=== PATIENT | female | born 2000 | race Caucasian/White ===

== ENCOUNTER 2019-08-23 06:15 | Inpatient (IN) | payer OTHER, SELFPAY ==
[2019-08-23] VITALS (65 sets, daily range): BP systolic 86–129; BP diastolic 47–96; PULSE 71–103; RESP 18; TEMP 36.6–37.3; O2SAT 96–100; BMI 33.1
[2019-08-23 07:18] LABS: Basophils Percent Auto 0.4 % (0.2-1.2); Eosinophils Absolute Auto 0.1 K/mm3 (0-0.3); Eosinophils Percent Auto 1.9 % (0-4.4); Hematocrit 29.3 % (37.0-47.0); Hemoglobin 9.2 g/dL (12.0-15.0); Immature Granulocyte Absolute 0.03 K/mm3 (0.00-0.031); Immature Granulocyte Percent A 0.4 % (0-0.5); Lymphocytes Absolute Auto 1.24 K/mm3 (0.9-3.2); Lymphocytes Percent Auto 17.1 % (18.3-44.2); Mean Corpuscular HGB Conc 31.4 g/dl (32-36); Mean Corpuscular Hemoglobin 25.1 pg (26-34); Mean Corpuscular Volume 79.8 fl (80-100); Mean Platelet Volume 11.1 fl (7.4-10.4); Monocytes Absolute Auto 0.5 K/mm3 (0.1-0.6); Monocytes Percent Auto 6.3 % (2.6-8.5); Neutrophils Absolute Auto 5.4 K/mm3 (1.3-6.7); Neutrophils Percent Auto 73.9 % (45.5-73.1); Platelet Count Result 266 k/mm3 (150-375); Red Blood Count 3.67 M/mm3 (4.2-5.4); Red Cell Distribution Width 14.7 % (11.5-14.5); White Blood Count 7.3 K/mm3 (4.5-10.0)
--- NOTE | 2019-08-23 07:24 | WPDOBADMIT ---
Obstetrics - Admit Note Admission Note: record reviewed. No pertinent additions to the history and/or any subsequent changes in the physical findings that are not consistent with the expected course of the were found. Additions to the history and/or subsequent changes in the physical findings follow. G1 at 37 weeks for induction of labor due to cholestasis. Cervix 2-3/80/-1. AROM with clear fluid. GBS negative. Continue pitocin
[2019-08-23] MEDS: LACTATED RINGERS 1,000 ML 125 ML IV CONT ×2 (07:26→10:50)
[2019-08-23 07:54] LABS: Amphetamine Screen Urine Negative (Negative); Barbiturate Screen Urine Negative (Negative); Benzodiazepines Screen Urine Negative (Negative); Cannabinoid Screen Urine Negative (Negative); Cocaine Screen Urine Negative (Negative); Methadone Screen Urine Negative (Negative); Opiate Screen Urine Negative (Negative); Phencyclidine Screen Urine Negative (Negative)
--- NOTE | 2019-08-23 07:55 | LDADM ---
This patient, Alyson Simpson, was admitted to Labor/Delivery/Recovery 107 on 08/23/19 at 06:15. Plans for labor, pain management and were discussed with patient. Patient/family oriented to hospital policies and general routines including ID bracelet, bed and alarms, visiting hours, pain management, procedures, bathroom and other care routines, personal items, smoking policy, room service/diet and guest tray routines, security routines, and visiting hours. Patient/Family are encouraged to report perceived risks to care and to ask questions if they do not understand what they are told or what they should do. See OBIX for further documentation.
--- NOTE | 2019-08-23 11:35 | WPDANESEPP ---
Anes - Eval Pre Procedure Procedure: labor epidural Date/Time: 08/23/19 11:35 Surgeon: Beck Preop Diagnosis: labor pain Pre Op Diagnosis: iol Patient Data Age: 18 Gender: F Height: 1.5 m Weight: 74.5 kg Last Vital Signs Temp 36.6 C 08/23/19 09:30 Pulse 94 08/23/19 11:34 BP 118/74 08/23/19 11:34 Pulse Ox 98 08/23/19 11:32 Allergies Allergy/AdvReac Type Severity Reaction Status Date / Time No Known Allergies Allergy Verified 05/24/19 20:48 Home Medications Medication Instructions Recorded Confirmed Type PNV cmb#95-ferrous fumarate-FA 1 tablet PO DAILY 08/20/19 08/20/19 History [] ursodiol 300 mg PO BID 08/20/19 08/20/19 History Laboratory Tests 08/23/19 08/23/19 08/23/19 07:02 07:02 07:02 WBC 7.3 K/mm3 K/mm3 (4.5-10.0) RBC 3.67 M/mm3 L M/mm3 (4.2-5.4) Hgb 9.2 g/dL L D g/dL (12.0-15.0) Hct 29.3 % L % (37.0-47.0) MCV 79.8 fl L fl (80-100) MCH 25.1 pg L pg (26-34) MCHC 31.4 g/dl L g/dl (32-36) RDW 14.7 % H % (11.5-14.5) Plt Count 266 k/mm3 k/mm3 (150-375) MPV 11.1 fl H fl (7.4-10.4) Immature Gran % (Auto) 0.4 % % (0-0.5) Neut % (Auto) 73.9 % H % (45.5-73.1) Lymph % (Auto) 17.1 % L % (18.3-44.2) [place] % (Auto) 6.3 % % (2.6-8.5) Eos % (Auto) 1.9 % % (0-4.4) Baso % (Auto) 0.4 % % (0.2-1.2) Lymph # (Auto) 1.24 K/mm3 K/mm3 (0.9-3.2) [place] # (Auto) 0.5 K/mm3 K/mm3 (0.1-0.6) Eos # (Auto) 0.1 K/mm3 K/mm3 (0-0.3) Baso # (Auto) 0.0 K/mm3 K/mm3 (0.0-0.1) Abs Immat Gran (auto) 0.03 K/mm3 K/mm3 (0.00-0.031) Absolute Neuts (auto) 5.4 K/mm3 K/mm3 (1.3-6.7) Absolute Nucleated RBC 0.0 K/mm3 K/mm3 (0.0-0.012) Nucleated RBC % 0.0 % % (0.0-0.2) Urine Opiates Screen Urine Methadone Screen Ur Barbiturates Screen Ur Phencyclidine Scrn Ur Amphetamine Screen U Benzodiazepines Scrn Urine Cocaine Screen U Cannabinoids Screen RPR Pending Blood Type A Positive Antibody Screen Negative 08/23/19 07:29 WBC RBC Hgb Hct MCV MCH MCHC RDW Plt Count MPV Immature Gran % (Auto) Neut % (Auto) Lymph % (Auto) [place] % (Auto) Eos % (Auto) Baso % (Auto) Lymph # (Auto) [place] # (Auto) Eos # (Auto) Baso # (Auto) Abs Immat Gran (auto) Absolute Neuts (auto) Absolute Nucleated RBC Nucleated RBC % Urine Opiates Screen Negative (Negative) Urine Methadone Screen Negative (Negative) Ur Barbiturates Screen Negative (Negative) Ur Phencyclidine Scrn Negative (Negative) Ur Amphetamine Screen Negative (Negative) U Benzodiazepines Scrn Negative (Negative) Urine Cocaine Screen Negative (Negative) U Cannabinoids Screen Negative (Negative) RPR Blood Type Antibody Screen Patient hx anesthesia problems: none Family hx anesthesia problems: none PMFSH Past Medical History Medical History (Updated 05/24/19 @ 23:57 by Elda Sharif MD) Asthma GERD (gastroesophageal reflux disease) Surgical History Surgical History (Updated 05/24/19 @ 19:44 by James Hooker) History of tonsillectomy Family History Family History (Updated 08/20/19 @ 15:18 by Evan Galeano RN) Other Spina bifida Grandparent Melanoma Social History Social History Smoking status: Never smoker Substance use: current Last use: 3-4 MONTHS AGO Gender identity (if verbalized by the patient): Female Spiritual care concerns: No Exam Day of Procedure 08/23/19 11:35
[2019-08-23] MEDS: CALCIUM CARBONATE (TUMS) 500 MG (200 MG ELEMENTAL) PO (15:58)
[2019-08-23] MEDS: ONDANSETRON INJ 4 MG/2 ML VIAL IV PUSH (16:22)
--- NOTE | 2019-08-23 17:28 | PM.OBPRVD ---
OB - Delivery Note Procedure Delivery date: 08/23/19 Procedure: events: Labor Induction Intrapartal events: None Induction method: AROM and per pitocin protocol Delivery monitor: external FHT Route of delivery: Episiotomy description: Midline (second degree) Delivery repair: vicryl (2-0) Specimen: Yes Estimated blood loss (mL): 275 Anesthesia type: Epidural Disposition: floor Baby Date of : 08/23/19 Time of : 17:09 Weeks of gestation at delivery: 37 Infant gender: Female Weight (pounds): 7 Weight (ounces): 11 presentation: vertex position: Right Occiput Posterior Placenta delivery description: Manual Removal cord vessel description: 3 Vessels and Nuchal Cord score one minute: 8 score five minutes: 9
[2019-08-23] MEDS: WITCH HAZEL 40 PADS 1 PAD TOPICAL (19:18)
[2019-08-23] MEDS: BENZOCAINE 20% AER SPR (*SP) 56 GM CAN 1 SPRAY TOPICAL (19:19)
--- NOTE | 2019-08-23 19:51 | OBPPTRN ---
Patient transferred to post room #283 via wheelchair with in bassinet. Support person present. Oriented to unit, room, information board, rooming in, admission packet and security measures. Patient verbalizes understanding.
[2019-08-23] MEDS: IBUPROFEN 600 MG TABLET PO (20:43)
[2019-08-23] MEDS: SIMETHICONE 80 MG TAB.CHEW PO (23:50)
[2019-08-24] MEDS: IBUPROFEN 600 MG TABLET PO ×3 (03:45→17:59)
[2019-08-24 05:17] LABS: Hematocrit 26.2 % (37.0-47.0); Hemoglobin 8.4 g/dL (12.0-15.0)
--- NOTE | 2019-08-24 07:34 | WPDANLDPN2 ---
Anes-Prog Note L&D Date/Time: 08/24/19 07:34 Comfortable throughout: labor and delivery Neuraxial method: epidural Epidural/Spinal procedure site: clean & non-tender Neuro status: Neuro function grossly intact. Cardiovascular status: normal Respiratory status: normal Airway patency: baseline Mental status: baseline Post-Op hydration status: normal Vital Signs: Last Vital Signs Temp 36.6 C 08/23/19 22:40 Pulse 80 08/23/19 22:40 Resp 18 08/23/19 22:40 BP 106/66 08/23/19 22:40 Pulse Ox 100 08/23/19 22:40 I/O: Intake & Output 08/23/19 08/23/19 08/24/19 15:59 23:59 07:59 Intake Total 1000 Output Total 356 Balance 1000 -356 Post-procedural complaints: none Patient feedback: Patient satisfied with anesthetic care.
--- NOTE | 2019-08-24 07:48 | P.DS_ITS ---
DS: Diagnosis Discharge Diagnosis (1) Cholestasis during in third trimester: Code(s): O26.613 - Liver and biliary tract disorders in , third trimester; K83.1 - Obstruction of bile duct Status: Acute OB - DS: Summary OB Procedures : None OB Procedures Intrapartum: Spontaneous Vag Delivery OB Procedures: : None Peripartum Data Infant Delivery Method: Natural Vaginal Episiotomy description: Midline (2nd degree) complications: none Status at Discharge Functional status at discharge: independent ambulation Overall status at discharge: patient is progressing back to baseline Time Spent with Patient Time attestation: Total time spent providing and/or coordinating discharge services: Time spent: Less than 30 minutes DS: Data Data Completed and Pending Pending studies at discharge: Pending at discharge 08/23/19 17:15 Surgical [PTH] Routine Labs on day of discharge: Labs from last 24 hours 08/24/19 08/23/19 08/23/19 05:10 07:29 07:02 Hgb 8.4 L Hct 26.2 L Urine Opiates Screen Negative Urine Methadone Screen Negative Ur Barbiturates Screen Negative Ur Phencyclidine Scrn Negative Ur Amphetamine Screen Negative U Benzodiazepines Scrn Negative Urine Cocaine Screen Negative U Cannabinoids Screen Negative Blood Type A Positive Antibody Screen Negative Discharge Plan Discharge Attending physician on discharge: Pattie Solares Anticipated Discharge Date/Time: 08/25/19 11:00 Patient Disposition: Home, Self-Care Activity: may shower and pelvic rest Diet: regular Patient Instructions: Antibiotic Form Stand Alone Forms: General Discharge Information Follow-up/Referrals: Pattie Solares MD [Physician] - 4 Weeks Discharge Medications: New ibuprofen 600 mg Tablet 600 mg PO Q6H PRN (Reason: Cramping) Qty: 60 RF: 0 Continued PNV cmb#95-ferrous fumarate-FA [] 28 mg iron- 800 mcg Tablet 1 tablet PO DAILY RF: 0 Discontinued ursodiol 300 mg Capsule 300 mg PO BID RF: 0 Date of admission: 08/23/19 06:15 Primary Care Provider: PHYSICIAN,[employer]ENER [employer] Admitting Provider: Pattie Solares Attending physician on admission: Pattie Solares
--- NOTE | 2019-08-24 07:48 | PM.OBPNVD ---
OB - PN: Subj Subjective Date/time seen: 08/24/19 07:48 Patient comments: no complaints, pain well controlled and other (Lochia similar to menses) [place] baby status: doing well OB - PN: Obj Data Labs CBC & Chem 7: 08/24/19 05:10 Labs: Laboratory Results - last 24 hr 08/23/19 08/23/19 08/24/19 07:02 07:29 05:10 Hgb 8.4 L Hct 26.2 L Urine Opiates Screen Negative Urine Methadone Screen Negative Ur Barbiturates Screen Negative Ur Phencyclidine Scrn Negative Ur Amphetamine Screen Negative U Benzodiazepines Scrn Negative Urine Cocaine Screen Negative U Cannabinoids Screen Negative Blood Type A Positive Antibody Screen Negative OB - PN A/P Plan day: 1 (s/p vaginal delivery, doing well) Plan: routine care Time Spent With Patient Time: Total time spent is greater than 50% in coordination of care (as documented) at patient's floor/unit and/or counseling patient: Exam Const: General: no acute distress GI: Inspection: other (Fundus firm and nontender at umbilicus) GI Palp: Yes Soft to palpation and No Tenderness to palpation present (GI) Extrem: General: no edema
[2019-08-24 07:55] VITALS: BP 110/55; PULSE 85; RESP 18; TEMP 37.6; O2SAT 98
[2019-08-24] MEDS: DOCUSATE SODIUM 100 MG CAPSULE PO ×2 (08:44→16:54)
[2019-08-24] MEDS: MULTIVIT/MIN/PREN/FOL AC/IRON TABLET 1 TAB PO (08:44)
[2019-08-24] MEDS: POLYSACCHARIDE IRON COMPLEX 150 MG CAPSULE PO ×2 (08:44→16:54)
[2019-08-24] MEDS: TETANUS,DIPHTHERIA,AC PERTUSSIS ADULT 0.5 ML (ADACEL) IM (08:45)
[2019-08-24 09:25] LABS: Rapid Plasma Reagin Non-Reactive (NonReactive)
--- NOTE | 2019-08-24 14:30 | PC.NURSE ---
Mother called out for assist with feeding. Upon entering mother is latching in cradle with head to the right and extended. Mother reports slight tenderness with feeding. When releases latch nipple is curled upward. Reviewed positioning/alignment in cross cradle, holding breast in U hold and guided asymmetrical latch on. was able to latch correctly. nursed eagerly, with steady draws and frequent swallowing noted. Reviewed signs of a correct latch, effective nursing and suck swallow ratio. Infant was able to maintain latch without discomfort to mother. Nipple care reviewed. Suggested mother hold breast during entire feeding to assist maintaining deep latch for increased intake and her comfort. Instructed mother to call out for RN assistance if she is unable to latch infant for feeding or she has discomfort with nursing. Instructed feeding should be initiated three hours from start of last feeding or if feeding cues are noted before. Mother voiced understanding of information shared. Reviewed feeding cues, frequencies, duration of feedings, feeding elimination flow sheet, and signs of adequate intake. Demonstrated stimulation techniques to wake infant for feeding. Assisted with to breast.
[2019-08-24 20:40] VITALS: BP 105/55; PULSE 73; RESP 18; TEMP 36.9; O2SAT 97
[2019-08-25] MEDS: IBUPROFEN 600 MG TABLET PO ×2 (03:51→11:06)
--- NOTE | 2019-08-25 07:47 | PM.OBPNVD ---
OB - PN: Subj Subjective Date/time seen: 08/25/19 07:47 OB - PN: Obj Data Labs CBC & Chem 7: 08/24/19 05:10 Labs: Laboratory Results - last 24 hr 08/23/19 07:02 RPR Non-reactive OB - PN A/P Plan day: 2 Plan: routine care, discharge home and other Comments: Follow up in 4 weeks Time Spent With Patient Time: Total time spent is greater than 50% in coordination of care (as documented) at patient's floor/unit and/or counseling patient: Time with patient: less than 15 minutes Review of Systems Review of Systems: All systems reviewed & are unremarkable except as noted in HPI and below Exam Narrative: Exam Narrative: Fundus firm and vaginal flow controlled. Lower ext: no pain, redness or warmth. Negative homans. Const: General: comfortable Resp: Effort & Inspection: normal respiratory effort Cardio: Rate: regular rate GI: Auscultation: normal bowel sounds Psych: Appearance: grossly normal Affect: normal affect Attitude: cooperative Judgement: Good judgement present (Psych)
[2019-08-25 08:20] VITALS: BP 106/60; PULSE 77; RESP 18; TEMP 37.5; O2SAT 99
[2019-08-25] MEDS: MULTIVIT/MIN/PREN/FOL AC/IRON TABLET 1 TAB PO (08:53)
[2019-08-25] MEDS: POLYSACCHARIDE IRON COMPLEX 150 MG CAPSULE PO (08:53)
[2019-08-25] MEDS: DOCUSATE SODIUM 100 MG CAPSULE PO (08:53)
--- NOTE | 2019-08-25 09:40 | PC.NURSE ---
Mother able to independently latch with appropriate positioning/alignment. She denies any nipple discomfort, is feeding as required and waking infant to feed if needed. Infant has had 8 effective feedings in the past 24 hours, and is currently meeting outcomes for weight, output, jaundice and feeding frequencies. Mother states she feels confident to continue effective at home. Reviewed transition to breast milk, signs of adequate intake, and engorgement/relief. Instructed to call ICP if intake/output less than required. Reviewed regular medications mother is taking. Information provided per E[place]. Reviewed community resources on the [facility] website and in the Mom/Baby guide. Information on outpatient services provided. Mother has no further questions at this time. Assisted/demonstrated to mother her home pump
--- NOTE | 2019-08-25 11:44 | PCCCNOTE ---
Care Coordination met with pt. this morning to discuss discharge planning. Pt.'s discharge plan is to return home with her mother. Pt. states that her mother lives in [facility]. Pt. states that she and the FOB live with her mother and they will continue to live with her once discharged from the hospital. Pt.'s mother is supportive and will assist pt. with caring for the baby. Pt. states that FOB is also very supportive. This is the first baby for both the pt. and FOB. Pt. states that she has everything at home that she will need to care for the baby. She has a care seat in the room and states that they went to the fire station to have the car seat properly installed into the car. Pt. is working on signing up for WIC for the baby but was given resources that include WIC if needed. Pt. tested positive for THC during her , but tested negative at time of delivery. The baby has not been tested. Pt. states she used Marijuana to help with her nausea and now that she has delivered the baby, she will not continue to use Marijuana. Pt. states that she has no discharge needs or concerns about discharging home at this time. No further need for Care Coordination services at this time.
== END 2019-08-25 17:37 | disposition home or self-care (01) | DRG 560 ==
LOC: ANHLDR 10:18 → ANHOB2 19:57
PROVIDERS: Admitting Provider Obstetrics & Gynecology; Visit Provider Obstetrics & Gynecology
DX: O26.62 Liver and biliary tract disorders in childbirth (principal); K83.1 Obstruction of bile duct; Z3A.37 37 weeks gestation of pregnancy; Z37.0 Single live birth; O69.81X0 Labor and delivery complicated by cord around neck, without compression, not applicable or unspecified; O70.1 Second degree perineal laceration during delivery; O71.82 Other specified trauma to perineum and vulva; Z23 Encounter for immunization
CPT/HCPCS: 36415; 80307; 85014; 85018; 85025; 86592; 86850; 86900; 86901; 88307; 90715; A9270; J2405; J2590; J2795; J3010; J7120

== ENCOUNTER 2021-04-27 19:55 | Emergency (ER) | payer OTHER, SELFPAY ==
--- NOTE | ~2021-04-27 | XR_ITS ---
EXAMINATION: XR chest 2V DATE: 04/27/2021 20:33 INDICATION: Chest tightness. Shortness of breath. TECHNIQUE: Frontal and lateral views of the chest were obtained. COMPARISON: Chest 2 views 05/24/2019 FINDINGS: The chest demonstrates clear lungs without pneumonia, pleural effusion, or pneumothorax. Th e heart size is normal. IMPRESSION: 1. No acute cardiopulmonary disease. Reviewed, dictated and finalized at location A.
[2021-04-27 20:10] VITALS: BP 127/84; PULSE 95; RESP 18; TEMP 36.7; O2SAT 100
--- NOTE | 2021-04-27 20:16 | ECG_ITS ---
Measurements Intervals [place] Rate: 82 P: 40 SD: 148 QRS: 61 QRSD: 90 T: 38 QT: 361 QTc: 423 Interpretive Statements SINUS RHYTHM WITH SINUS ARRHYTHMIA BASELINE ARTIFACT-I, II, III, AVR, AVL, AVF NORMAL ECG Electronically Signed On 04-28-2021 6:20:19 CDT by Wilfred Engel D.O.
[2021-04-27 21:49] LABS: Basophils Absolute Auto 0.1 K/mm3 (0.0-0.1); Basophils Percent Auto 0.7 % (0.2-1.2); Eosinophils Absolute Auto 0.2 K/mm3 (0-0.3); Eosinophils Percent Auto 2.5 % (0-4.4); Hematocrit 40.7 % (37.0-47.0); Hemoglobin 13.3 g/dL (12.0-15.0); Immature Granulocyte Absolute 0.02 K/mm3 (0.00-0.031); Immature Granulocyte Percent A 0.3 % (0-0.5); Lymphocytes Absolute Auto 1.25 K/mm3 (0.9-3.2); Lymphocytes Percent Auto 16.5 % (18.3-44.2); Mean Corpuscular HGB Conc 32.7 g/dl (32-36); Mean Corpuscular Hemoglobin 28.1 pg (26-34); Mean Corpuscular Volume 85.9 fl (80-100); Mean Platelet Volume 10.6 fl (7.4-10.4); Monocytes Absolute Auto 0.7 K/mm3 (0.1-0.6); Monocytes Percent Auto 9.1 % (2.6-8.5); Neutrophils Absolute Auto 5.4 K/mm3 (1.3-6.7); Neutrophils Percent Auto 70.9 % (45.5-73.1); Platelet Count Result 313 k/mm3 (150-375); Red Blood Count 4.74 M/mm3 (4.2-5.4); Red Cell Distribution Width 12.8 % (11.5-14.5); White Blood Count 7.6 K/mm3 (4.5-10.0)
[2021-04-27 22:04] LABS: Anion Gap 12 mmol/L (8-16); Blood Urea Nitrogen 9 mg/dL (7-17); Calcium 9.1 mg/dL (8.4-10.2); Carbon Dioxide 24 mmol/L (22-30); Chloride 106 mmol/L (98-107); Estimated Glomerular Filt Rate > 60; Glucose 103 mg/dL (65-110); Potassium 3.6 mmol/L (3.4-5.0); Sodium 142 mmol/L (137-145)
[2021-04-27 22:06] LABS: INR 0.9; Prothrombin Time 12.1 Seconds (11.1-14.7)
[2021-04-27 22:07] LABS: Partial Thromboplastin Time 29.3 SECONDS (22.3-36.8)
[2021-04-27 22:09] LABS: D Dimer 0.33 ug/mL (<0.48)
[2021-04-27 22:16] LABS: Troponin I < 0.012 ng/mL (0.000-0.034)
--- NOTE | 2021-04-27 22:53 | PC.NURSE ---
Stated to this RN that her ride needed to go to work. Speech clear. a/o x 4. ambulatory out of dept. c steady, even, unassisted gait.
== END 2021-04-27 22:53 | disposition left against medical advice (07) ==
PROVIDERS: Emergency Provider Emergency Medicine
DX: R06.02 Shortness of breath (principal)
CPT/HCPCS: 36415; 71046; 80048; 84484; 85025; 85380; 85610; 85730; 93005; 99199

== ENCOUNTER 2021-04-29 10:35 | Emergency (ER) | payer OTHER, SELFPAY ==
[2021-04-29 10:49] VITALS: BP 119/66; PULSE 95; RESP 16; TEMP 36.3; O2SAT 99
--- NOTE | 2021-04-29 10:56 | ED.URI ---
HPI - URI/Sore Throat General Chief Complaint: Upper Respiratory Infection Stated Complaint: cough/difficulty breathing Time Seen by Provider: 04/29/21 10:56 Source: patient, RN notes reviewed and old records reviewed (ER record) Mode of arrival: ambulatory Limitations: no limitations History of Present Illness HPI Narrative: 20-year-old female presents to the [facility] with cough and short of breath. States is going on for weeks. Had gone to the ER couple of days ago but never seen a provider MD elicited complaint: cough Related Data Home Medications Medication Instructions Recorded Confirmed PNV cmb#95-ferrous fumarate-FA 1 tablet PO DAILY 08/20/19 04/29/21 [] Allergies Allergy/AdvReac Type Severity Reaction Status Date / Time No Known Allergies Allergy Verified 04/29/21 10:47 Review of Systems Review of Systems: All systems reviewed & are unremarkable except as noted in HPI and below Constitutional: Constitutional: Reports no additional constitutional complaints Eyes: Eyes: Reports no additional eye complaints ENT: Reports system reviewed and no additional complaints, except as documented Cardiovascular: Cardiovascular: Reports no additional cardiovascular complaints Respiratory: Respiratory: Reports as per HPI, Reports cough, Reports dyspnea and Reports wheezing Gastrointestinal: Gastrointestinal: Reports no additional gastrointestinal complaints Musculoskeletal: Musculoskeletal: Reports no additional musculoskeletal complaints Integumentary/Breasts: Skin/Breast: Reports system reviewed and no additional complaints, except as docu Neurologic: Reports system reviewed and no additional complaints, except as documented Psychiatric: Psychiatric: Reports no additional psychiatric complaints Allergic/Immunologic: Allergic/Immunologic: Reports no additional allergic/immunologic complaints PMFSH Past Medical History Medical History Asthma GERD (gastroesophageal reflux disease) Surgical History Surgical History History of tonsillectomy Family History Family History Other Spina bifida Grandparent Melanoma Social History Social History Smoking status: Never smoker Substance use: current Last use: 3-4 MONTHS AGO Gender identity (if verbalized by the patient): Female Spiritual care concerns: No Comments At the time of my signature, I reviewed and agree with the nursing past medical, surgical, social, and family history. There is no relevant family history pertinent to the patient complaint. Exam Const: General: no acute distress, alert and ill appearing acutely Nutritional Appearance: well nourished Orientation/consciousness: patient oriented x3 Limitations: no limitations HENMT: Head: normal to inspection Ears: external ears normal, TM's normal bilaterally and EAC's normal Eyes: Pupils: Equal, round and reactive pupils present Neck: Neck: normal visual inspection, no lymphadenopathy and no meningeal signs Chest: Chest palpation & inspection: normal inspection of the chest Resp: Effort & Inspection: normal respiratory effort and no use of accessory muscles Auscultation: wheezes upper bilaterally and diminished lung sounds bilateral in the lower lung dobson Cardio: Rate: regular rate Rhythm: regular rhythm GI: GI Palp: Yes Soft to palpation and No Tenderness to palpation present (GI) : General: Yes no CVA tenderness Back/Spine/Pelvis: Back: no CVA tenderness Skin: General skin exam: normal color Rashes: no rashes Wounds: no wounds Neuro: General: patient oriented x3, moves all extremities, no meningeal signs and no focal motor deficits Speech: normal speech Gait exam (Neuro): Normal gait present Extrem: General: normal to inspection Psych: Appearance: gr
[2021-04-29 11:08] VITALS: PULSE 110; RESP 18; O2SAT 99
[2021-04-29] MEDS: ALBUTEROL SULFATE NEB 2.5 MG/3 ML INH INHALATION (11:10)
[2021-04-29] MEDS: IPRATROPIUM BR 0.02% INH SOLN 0.5 MG/2.5 ML VIAL INHALATION (11:10)
[2021-04-29 11:35] VITALS: PULSE 103; RESP 18; O2SAT 99
== END 2021-04-29 11:47 | disposition home or self-care (01) ==
PROVIDERS: Emergency Provider Nurse Practitioner
DX: J40 Bronchitis, not specified as acute or chronic (principal); J45.909 Unspecified asthma, uncomplicated; K21.9 Gastro-esophageal reflux disease without esophagitis
CPT/HCPCS: 94640; 99213; G0463

== ENCOUNTER 2022-05-26 16:17 | Emergency (ER) | payer OTHER, SELFPAY ==
--- NOTE | ~2022-05-26 | US_ITS ---
US OB <=14 wk fetus w TV DATE: 05/26/2022 19:00 INDICATION: Vaginal bleeding; 6-7 week gestation. History of miscarriage. TECHNIQUE: Real-time imaging via transabdominal and transvaginal approaches. Doppler analysis. COMPARISON: 01/28/2019 obstetrical ultrasound FINDINGS: The uterus is retroverted, measuring approximately 9.9 cm height, up to 4.8 cm AP dimension . An intrauterine gestational sac is identified with surrounding hyperechogenicity consistent with norm al decidual reaction. pole and yolk sac are identified. heart rate of 127 bpm. Mignon-rump length averages 0.55 cm consistent with 6 weeks 2 days +/- 4 days estimated gestational ag e. CAMILA: 01/17/2023. Gestational sac of 1.7 cm is consistent with 6 weeks 5 days estimated gestational age. There is a very shallow fluid collection adjacent to the gestational sac consistent with small subcho rionic hematoma. 3.2 cm right ovarian cyst. The left ovary measures 2.42 x 1.5 cm. IMPRESSION: Estimated gestational age of 6 weeks 2 days +/- 4 days; CAMILA: 01/17/2023 Very small subchorionic hematoma 3.2 cm right ovarian cyst Retroverted uterus Reviewed, dictated and finalized at Location [facility]. Reviewed, dictated and finalized at location A. TS PHYSIOLOGIST IMPRESSION: Estimated gestational age of 6 weeks 2 days +/- 4 days; CAMILA: 01/18/20 23 Very small subchorionic hematoma 3.2 cm right ovarian cyst Retroverted uterus
[2022-05-26 16:24] VITALS: BP 115/78; PULSE 80; RESP 17; TEMP 36.7; O2SAT 100
[2022-05-26 18:46] LABS: Basophils Absolute Auto 0.1 K/mm3 (0.0-0.1); Basophils Percent Auto 0.5 % (0.2-1.2); Eosinophils Absolute Auto 0.1 K/mm3 (0-0.3); Eosinophils Percent Auto 0.9 % (0-4.4); Hematocrit 40.6 % (37.0-47.0); Hemoglobin 13.9 g/dL (12.0-15.0); Immature Granulocyte Absolute 0.03 K/mm3 (0.00-0.031); Immature Granulocyte Percent A 0.3 % (0-0.5); Lymphocytes Absolute Auto 1.68 K/mm3 (0.9-3.2); Lymphocytes Percent Auto 17.1 % (18.3-44.2); Mean Corpuscular HGB Conc 34.2 g/dl (32-36); Mean Corpuscular Volume 84.8 fl (80-100); Monocytes Absolute Auto 0.5 K/mm3 (0.1-0.6); Monocytes Percent Auto 5.3 % (2.6-8.5); Neutrophils Absolute Auto 7.4 K/mm3 (1.3-6.7); Neutrophils Percent Auto 75.9 % (45.5-73.1); Platelet Count Result 336 k/mm3 (150-375); Red Blood Count 4.79 M/mm3 (4.2-5.4); Red Cell Distribution Width 11.6 % (11.5-14.5); White Blood Count 9.8 K/mm3 (4.5-10.0)
--- NOTE | 2022-05-26 18:49 | ED.PREGNANCY ---
HPI - General Chief complaint: Vaginal Bleeding Stated complaint: vaginal bleeding, Time Seen by Provider: 05/26/22 18:22 Source: patient Mode of arrival: ambulatory Limitations: no limitations History of Present Illness HPI Narrative: Patient is a 21-year-old female, G3, P1, A1 (miscarriage January 2022), who presents the ED with report of vaginal spotting. Patient reports she is approximately 6 to 7 weeks gestation. Last normal menstrual period April 07, 2022. Over the last few days, she has had intermittent vaginal bleeding, noticed mostly when she is wiping her self after using the restroom. She is scheduled to see Dr. Armstrong with [facility] on . She denies any significant abdominal pain. She has had nausea and vomiting in the mornings. Denies hematuria, dysuria, fever. Related Data Home Medications Medication Instructions Recorded Confirmed vit no.95-ferrous 1 tablet PO DAILY 08/20/19 04/29/21 fumarate 28 mg-folic acid 800 mcg tablet () Allergies Allergy/AdvReac Type Severity Reaction Status Date / Time No Known Allergies Allergy Verified 05/26/22 18:36 Review of Systems Review of Systems: CONSTITUTIONAL: Denies fever, chills, or sweats. CARDIOVASCULAR: Denies chest pain. RESPIRATORY: Denies dyspnea. GASTROINTESTINAL: Reports nausea, vomiting. Denies abdominal pain or diarrhea. GENITOURINARY: Reports vaginal bleeding. Denies dysuria or hematuria. All systems reviewed & are unremarkable except as noted in HPI and below PMFSH Past Medical History Medical History (Updated 05/26/22 @ 20:24 by Maureen Allen PA-C) Asthma GERD (gastroesophageal reflux disease) History of miscarriage Surgical History Surgical History History of tonsillectomy Family History Family History Other Spina bifida Grandparent Melanoma Social History Social History Smoking status: Never smoker Substance use: current Last use: 3-4 MONTHS AGO Gender identity (if verbalized by the patient): Female Spiritual care concerns: No Exam Narrative: GENERAL: Well appearing, well-nourished, non-toxic, in no acute distress. HEAD: Normocephalic, atraumatic. NECK: Supple. No adenopathy, no masses. RESPIRATORY: Airway patent, respirations nonlabored. Clear to auscultation bilaterally, no rales, rhonchi, wheezing. CARDIOVASCULAR: Regular rate and rhythm without murmurs, rubs, or gallops. Peripheral pulses 2+ and equal bilaterally. ABDOMINAL: Soft, no significant tenderness to palpation, nondistended, no hepatosplenomegaly. Normoactive BS. PELVIC: Normal external genitalia. Mild amount of physiologic discharge. No active bleeding from cervix. Cervix closed. No significant CMT. MUSCULOSKELETAL: Moves all extremities. Strength/ROM intact without gross deformities. SKIN: Warm, dry, normal color. No rashes. NEURO: A&O X3. Speech clear. Cranial nerves II-XII grossly intact. Steady gait. No ataxic movements. PSYCHIATRIC: Appropriate mood and affect. Normal interaction. Course Consultations Consultation #1: Discussed case with Dr. Armstrong, FRONT OFFICE SECRETARY, made aware of case findings. Will follow patient at scheduled appointment in office this week. Date: 05/26/22 Vital Signs Vital signs: Vital Signs Temperature 98.1 F 05/26/22 16:24 Pulse Rate 80 05/26/22 16:24 Respiratory Rate 17 05/26/22 16:24 Blood Pressure 115/78 05/26/22 16:24 Pulse Oximetry 100 05/26/22 16:24 Oxygen Delivery Room Air 05/26/22 16:24 Temperature 98.1 F 05/26/22 16:24 Pulse Rate 80 05/26/22 16:24 Respiratory Rate 17 05/26/22 16:24 Blood Pressure 115/78 05/26/22 16:24 Pulse Oximetry 100 05/26/22 16:24 Oxygen Delivery Room Air 05/26/22 16:24 MDM - OB/Uterine Contractions MDM N
[2022-05-26 19:09] LABS: Appearance Urine Slightly Cloudy (Clear); Bilirubin Urine 1+ (Negative); Blood Urine Negative (Negative); Color Urine Yellow (Yellow); Glucose Urine UA Negative (Negative); Ketones Urine 4+ mg/dL (Negative); Leukocyte Esterase Ur 2+ LEU/UL (Negative); Nitrate Urine Negative (Negative); Protein Urine Negative (Negative); Specific Grav Ur 1.025 (1.001-1.035); Urobilinogen Urine 0.2 mg/dL (<2.0)
[2022-05-26 19:13] LABS: Bacteria Urine Trace /hpf; Mucus Urine Few /lpf; RBC Urine 0-2 /hpf (0-2); Squamous Epithelial Cell Urine Many /hpf (Few)
[2022-05-26 19:14] LABS: Add Urine Microscopic? YES
== END 2022-05-26 21:30 | disposition home or self-care (01) ==
PROVIDERS: Physician Assistant; Emergency Provider Emergency Medicine
DX: O46.8X1 Other antepartum hemorrhage, first trimester (principal); O26.891 Other specified pregnancy related conditions, first trimester; R82.71 Bacteriuria; O99.511 Diseases of the respiratory system complicating pregnancy, first trimester; J45.909 Unspecified asthma, uncomplicated; O99.611 Diseases of the digestive system complicating pregnancy, first trimester; K21.9 Gastro-esophageal reflux disease without esophagitis; Z3A.01 Less than 8 weeks gestation of pregnancy
CPT/HCPCS: 36415; 76801; 76817; 81001; 84702; 85025; 85461; 86850; 86900; 86901; 87086; 87088; 99284

== ENCOUNTER 2022-08-13 08:19 | Emergency (ER) | payer OTHER, SELFPAY ==
--- NOTE | ~2022-08-13 | US_ITS ---
EXAMINATION: US OB limited DATE: 08/13/2022 09:28 INDICATION: Low abdominal cramping and pain. Estimated gestational age of 17 weeks and 4 days. TECHNIQUE: Real-time ultrasound of the pelvis was performed. COMPARISON: Ultrasound 05/26/2022 FINDINGS: There is a single fetus in transverse lie. The placenta is posterior and abuts the cervix. The cervi maciej length is 3.8 cm on transabdominal images, which is normal. heart rate is 130 beats per min [place] (bpm). The amniotic fluid volume is subjectively normal. IMPRESSION: 1. Single living fetus in transverse lie. 2. Marginal placenta previa. Follow-up ultrasound is recommended in the third trimester. Reviewed, dictated and finalized at location A. [employer]GER IMPRESSION: 1. Single living fetus in transverse lie. 2. Marginal placenta previa. Follow-up ultrasound is recommended in the third t rimester.
[2022-08-13 08:31] VITALS: BP 127/67; PULSE 95; RESP 20; TEMP 36.6; O2SAT 99
--- NOTE | 2022-08-13 09:04 | ED.ABDPAIN ---
HPI - Abdominal Pain General Chief Complaint: Abdominal Pain Stated Complaint: abd pain, 18 wks preg Time Seen by Provider: 08/13/22 08:54 History of Present Illness HPI narrative: Patient is a 21-year-old A1 female who is currently about 18 weeks here for evaluation of lower abdominal pain over the past 2 days. Patient states the pain is intermittent in nature, worse with certain positions. She contacted her [employer]AR SCIENTIST who attributed it to round ligament pain, she was told to use a belly band and rest. Patient has not attempted these measures; presented to ED make sure that her baby was okay. Denies any vaginal bleeding, dysuria, urgency, constipation, diarrhea. No contraction-like pain, sudden gush of fluids, decreased movement. Related Data Home Medications Medication Instructions Recorded Confirmed vit no.95-ferrous 1 tablet PO DAILY 08/20/19 04/29/21 fumarate 28 mg-folic acid 800 mcg tablet () Allergies Allergy/AdvReac Type Severity Reaction Status Date / Time No Known Allergies Allergy Verified 05/26/22 18:36 Review of Systems Review of Systems: Gen.: Denies fevers or chills Eyes: Denies eye pain or visual change ENT: Denies congestion Respiratory: Denies shortness of breath or cough CV: Denies chest pain or palpitations GI: Reports lower abdominal pain. Denies nausea, emesis or diarrhea denies burning, urgency, frequency or hematuria Musculoskeletal: Denies back pain or muscle pain Neuro: Denies numbness, tingling, weakness or focal weakness Skin: Denies rash Except as documented, all other systems reviewed and negative [facility] Past Medical History Medical History Asthma GERD (gastroesophageal reflux disease) History of miscarriage Surgical History Surgical History History of tonsillectomy Family History Family History Other Spina bifida Grandparent Melanoma Social History Social History Smoking status: Never smoker Substance use: current Last use: 3-4 MONTHS AGO Gender identity (if verbalized by the patient): Female Spiritual care concerns: No Exam Narrative: APPEARANCE: Well appearing, no pain in distress, well-nourished. Head: Normocephalic and atraumatic. EYES: PERRLA/EOMI, conjunctivae clear NOSE: No nasal drainage EARS: External ear normal in appearance THROAT: Oropharynx is clear. Mucous membranes are moist. NECK: Supple. No adenopathy, no masses. RESPIRATORY: Airway patent, respirations nonlabored. Clear to auscultation bilaterally, no rales, rhonchi, wheezing. CARDIOVASCULAR: Regular rate and rhythm without murmurs, rubs, or gallops. ABDOMINAL: heart tones detected at bedside at 140 rate. Normoactive bowel sounds. Soft, nontender, nondistended. No rebound tenderness or guarding. MUSCULOSKELETAL: Extremities are warm and well-perfused. Moves all extremities well. No edema. NEURO: Normal speech. No focal neurologic deficits. SKIN: Skin is warm and dry. No rashes. PSYCHIATRIC: Normal affect/mood. Course Vital Signs Vital signs: Vital Signs Temperature 97.8 F 08/13/22 08:31 Pulse Rate 95 08/13/22 08:31 Respiratory Rate 20 08/13/22 08:31 Blood Pressure 127/67 08/13/22 08:31 Pulse Oximetry 99 08/13/22 08:31 Oxygen Delivery Room Air 08/13/22 08:31 Temperature 97.8 F 08/13/22 09:38 Pulse Rate 80 08/13/22 11:59 Respiratory Rate 18 08/13/22 11:59 Blood Pressure 108/68 08/13/22 11:59 Pulse Oximetry 99 08/13/22 11:59 Oxygen Delivery Room Air 08/13/22 08:31 MDM - Abdominal Pain MDM Narrative Medical decision making narrative: 21-year-old G3, female who is currently 18 weeks here for evaluation of lower abdominal pain over the
[2022-08-13] MEDS: ACETAMINOPHEN 325 MG TABLET 650 MG PO (09:08)
[2022-08-13 09:38] VITALS: TEMP 36.6
[2022-08-13 10:05] LABS: Basophils Percent Auto 0.3 % (0.2-1.2); Eosinophils Percent Auto 0.6 % (0-4.4); Hematocrit 32.7 % (37.0-47.0); Hemoglobin 11.4 g/dL (12.0-15.0); Immature Granulocyte Absolute 0.03 K/mm3 (0.00-0.031); Immature Granulocyte Percent A 0.4 % (0-0.5); Lymphocytes Absolute Auto 1.02 K/mm3 (0.9-3.2); Lymphocytes Percent Auto 15.1 % (18.3-44.2); Mean Corpuscular HGB Conc 34.9 g/dl (32-36); Mean Corpuscular Hemoglobin 29.2 pg (26-34); Mean Corpuscular Volume 83.8 fl (80-100); Mean Platelet Volume 10.5 fl (7.4-10.4); Monocytes Absolute Auto 0.3 K/mm3 (0.1-0.6); Monocytes Percent Auto 4.6 % (2.6-8.5); Neutrophils Absolute Auto 5.3 K/mm3 (1.3-6.7); Platelet Count Result 253 k/mm3 (150-375); Red Cell Distribution Width 12.8 % (11.5-14.5); White Blood Count 6.8 K/mm3 (4.5-10.0)
[2022-08-13 10:07] LABS: Appearance Urine Clear (Clear); Bilirubin Urine Negative (Negative); Blood Urine Negative (Negative); Color Urine Yellow (Yellow); Glucose Urine UA Negative (Negative); Ketones Urine Negative (Negative); Leukocyte Esterase Ur 1+ LEU/UL (Negative); Nitrate Urine Negative (Negative); Protein Urine Negative (Negative); Specific Grav Ur >= 1.030 (1.001-1.035)
[2022-08-13 10:11] LABS: Mucus Urine Moderate /lpf; Squamous Epithelial Cell Urine Occasional /hpf (Few); WBC Urine 0-3 /hpf
[2022-08-13 10:15] LABS: Add Urine Microscopic? YES
[2022-08-13 10:17] LABS: Alanine Aminotransferase 22 U/L (6-35); Albumin Level 3.6 g/dL (3.5-5.1); Alkaline Phosphatase 63 U/L (38-126); Anion Gap 6 mmol/L (8-16); Aspartate Amino Transferase 20 U/L (14-36); Bilirubin,Total 0.4 mg/dL (0.2-1.3); Blood Urea Nitrogen 9 mg/dL (7-17); Calcium 8.1 mg/dL (8.4-10.2); Carbon Dioxide 22 mmol/L (22-30); Chloride 104 mmol/L (98-107); Estimated CRCL calculation 121 ml/min; Estimated Glomerular Filt Rate > 60; Glucose 86 mg/dL (65-110); Potassium 3.5 mmol/L (3.4-5.0); Sodium 132 mmol/L (137-145)
[2022-08-13 11:59] VITALS: BP 108/68; PULSE 80; RESP 18; O2SAT 99
== END 2022-08-13 12:01 | disposition home or self-care (01) ==
PROVIDERS: Emergency Provider Physician Assistant; PCP Obstetrics & Gynecology
DX: O44.22 Partial placenta previa NOS or without hemorrhage, second trimester (principal); O26.892 Other specified pregnancy related conditions, second trimester; R10.2 Pelvic and perineal pain; O99.512 Diseases of the respiratory system complicating pregnancy, second trimester; J45.909 Unspecified asthma, uncomplicated; O99.612 Diseases of the digestive system complicating pregnancy, second trimester; K21.9 Gastro-esophageal reflux disease without esophagitis; Z3A.18 18 weeks gestation of pregnancy
CPT/HCPCS: 36415; 76815; 80053; 81001; 84702; 85025; 99284; A9270